=== PATIENT | male | born 1935 | race Caucasian/White ===

== ENCOUNTER 2017-11-04 15:36 | Emergency (ER) | payer MEDICARE, BC ==
[~2017-11-04] VITALS: Ht 160 cm; Wt 77.3 kg
[~2017-11-04 15:36] MED LIST: ASPIRIN 81M81 MG/TA2 PO; COUMADIN2 MG PO; EPA FISH OIL1000 MG PO; FISH OIL500 MG PO; HCTZ 25MG TAB25 MG PO; LEVAQUIN 5500 MG/TA1 PO; LISINOPRIL20 MG PO; LOW DOSE ASPIRI81 MG PO; NORCO 325 MG-51 TAB PO; OSTEO-BI-FLEX 21 TAB PO; PRINZIDE 12.5 M1 TA1 PO; ZOFRAN 4MG T4 MG/TAB PO
[2017-11-04 15:56] LABS: BASO # 0.1 (0.0-0.2); BASO % 0.3 % (0.0-2.0); EOS # 0.2 (0.0-0.7); EOS % 1.3 % (0-4.0); GRAN # 12.8 (1.4-6.5); HEMATOCRIT 38.5 % (42.0-52.0); HEMOGLOBIN 12.7 g/dl (13.5-18.0); LYMPH # 2.3 (1.2-3.4); LYMPH % 13.8 % (20.0-51.0); MEAN CELL VOLUME 93 fl (80.0-100.0); MEAN CORPUSCULAR HEMOGLOBIN 31 pg (27.0-31.0); MEAN CORPUSCULAR HGB CONC 33 g/dl (33.0-37.0); MEAN PLATELET VOLUME 11.5 fl (7.4-10.4); MONO # 1.2 (0.1-0.6); MONO % 7.4 % (1.7-9.3); PLATELET COUNT 176 K/mm3 (130-400); RED BLOOD COUNT 4.14 M/mm3 (4.20-5.60); REDCELL DISTRIBUTION WIDTH-CV 13.2 % (11.5-14.5)
[2017-11-04 16:02] LABS: PROTHROMBIN TIME 11.8 SECONDS (9.7-12.8)
[2017-11-04 16:04] LABS: PARTIAL THROMBOPLASTIN TIME 24.1 SECONDS (26.0-37.0)
[2017-11-04 16:06] LABS: BILIRUBIN,TOTAL 0.3 mg/dL (0.0-1.0); CALCIUM 8.8 mg/dL (8.4-10.2); POTASSIUM 3.9 mmol/L (3.4-5.0); TOTAL PROTEIN 6.7 gm/dL (6.4-8.2)
[2017-11-04 16:55] VITALS: BP 143/77; PULSE 72
== END 2017-11-04 17:00 | disposition short-term general hospital (02) ==
LOC: COL.ER 15:36
PROVIDERS: Emergency Medicine
DX: S22.42XA Multiple fractures of ribs, left side, initial encounter for closed fracture (principal); S22.008A Other fracture of unspecified thoracic vertebra, initial encounter for closed fracture; S42.102A Fracture of unspecified part of scapula, left shoulder, initial encounter for closed fracture; S27.2XXA Traumatic hemopneumothorax, initial encounter; I10 Essential (primary) hypertension; N40.0 Benign prostatic hyperplasia without lower urinary tract symptoms; Z23 Encounter for immunization; Z90.49 Acquired absence of other specified parts of digestive tract; Z98.890 Other specified postprocedural states; Z79.82 Long term (current) use of aspirin; W20.8XXA Other cause of strike by thrown, projected or falling object, initial encounter; Y92.009 Unspecified place in unspecified non-institutional (private) residence as the place of occurrence of the external cause
CPT/HCPCS: J0690; J2250; J3010; J7030; Q9967